=== PATIENT | female | born 1995 | race Two or more races ===

== ENCOUNTER 2023-12-10 20:04 | Emergency (ER) | payer BC, OTHER ==
[2023-12-10 20:37] LABS: Bacteria/HPF 4+ HPF (None Seen); Bilirubin Negative (Negative); Blood, Urine Negative (Negative); CAUTI Indications for Culture Dysuria,urgency,freq; Clarity Turbid (Clear); Glucose, Urine (Dipstick) Normal (Negative); Ketone, Urine Negative (Negative); Leukocyte Negative Leu/uL (Negative); Nitrite Negative (Negative); Protein, Urine (Dipstick) 20 mg/dL (Neg-Trace); RBC/HPF 0-3 HPF (0-3); Squamous Epithelial 0-3 HPF (0-3); Urobilinogen 3 mg/dL (Less than 2); pH, Urine 6.5 (5.0-9.0)
[2023-12-10 20:47] LABS: Urine Culture Reflex Yes Yes
[2023-12-10 21:00] LABS: Pregnancy Test - Urine (BHCG) Negative (Negative); Pregu Control Background? CLEAR/WHITE (CLR/WHITE); Pregu Control Bar Appear? YES (CONTROL BAR); Specific Gravity 1.039 (1.002-1.036)
== END 2023-12-10 21:00 | disposition home or self-care (01) ==
LOC: ERS 20:04
DX: N39.0 Urinary tract infection, site not specified (principal); Z55.6 Problems related to health literacy
CPT/HCPCS: 81001; 81025; 87077; 87086; 87186; 99283

== ENCOUNTER 2024-01-12 10:45 | Emergency (ER) | payer BC ==
[2024-01-12] MEDS ORDERED: Ibuprofen 200 MG TAB ONE (11:01)
[2024-01-12] MEDS ORDERED: Ondansetron ODT 4 MG TAB ONE (11:01)
[2024-01-12 11:43] LABS: Bilirubin Negative (Negative); Blood, Urine Negative (Negative); CAUTI Indications for Culture Dysuria,urgency,freq; Clarity Clear (Clear); Glucose, Urine (Dipstick) Normal (Negative); Ketone, Urine 60 mg/dL (Negative); Leukocyte Negative Leu/uL (Negative); Nitrite Negative (Negative); Protein, Urine (Dipstick) 10 mg/dL (Neg-Trace); RBC/HPF 0-3 HPF (0-3); Squamous Epithelial 0-3 HPF (0-3); Urobilinogen Normal mg/dL (Less than 2); WBC/HPF 0-3 HPF (0-3); pH, Urine 6.5 (5.0-9.0)
[2024-01-12 11:47] LABS: Bacteria/HPF 1+ HPF (None Seen)
[2024-01-12 11:48] LABS: Urine Culture Reflex No No
== END 2024-01-12 12:52 | disposition home or self-care (01) ==
LOC: ERS 10:45
DX: B34.9 Viral infection, unspecified (principal)
CPT/HCPCS: 81001; 87077; 87086; 87186; 87428; 99283; Q0162

== ENCOUNTER 2024-02-13 14:39 | Emergency (ER) | payer BC ==
[2024-02-13 15:18] LABS: Bacteria/HPF None Seen HPF (None Seen); Bilirubin Negative (Negative); Blood, Urine Negative (Negative); CAUTI Indications for Culture Acute Hematuria; Clarity Clear (Clear); Glucose, Urine (Dipstick) Normal (Negative); Ketone, Urine Negative (Negative); Leukocyte 75 Leu/uL (Negative); Nitrite Negative (Negative); Protein, Urine (Dipstick) 10 mg/dL (Neg-Trace); RBC/HPF 0-3 HPF (0-3); Squamous Epithelial 0-3 HPF (0-3); WBC/HPF 0-3 HPF (0-3)
[2024-02-13 15:24] LABS: Pregnancy Test - Urine (BHCG) Negative (Negative); Pregu Control Background? CLEAR/WHITE (CLR/WHITE); Pregu Control Bar Appear? YES (CONTROL BAR); Urine Culture Reflex No No
[2024-02-13] MEDS ORDERED: Cyclobenzaprine 10 MG TAB ONE (15:29)
[2024-02-13] MEDS ORDERED: Ketorolac Tromethamine 30 MG (1 mL) VIAL ONE (15:29)
[2024-02-13] MEDS ORDERED: predniSONE 20 MG TAB ONE (15:29)
[2024-02-13] MEDS ORDERED: HYDROcodone/Acetaminophen 10/325 mg Tablet ONE (16:39)
== END 2024-02-13 17:00 | disposition home or self-care (01) ==
LOC: ERS 14:39
DX: M54.41 Lumbago with sciatica, right side (principal)
CPT/HCPCS: 81001; 81025; 96372; 99283; J1885; J7512